=== PATIENT | female | born 1990 | race Caucasian/White ===

== ENCOUNTER 2021-07-02 09:45 | Inpatient (IN) | payer BC ==
[2021-07-02] MEDS: ELECTROLYTE-148 SOLN 1,000 ML IV SCH ×2 (11:00→13:38)
[2021-07-02 12:13] VITALS: BMI 24.7
[2021-07-02] MEDS ORDERED: METHYLERGONOVINE MALEATE 0.2 MG/1 ML AMP IM PRN (15:51)
[2021-07-02] MEDS ORDERED: BENZOCAINE 28 GM HEMORRHOIDAL OINTMENT TP PRN (15:51)
[2021-07-02] MEDS ORDERED: ACETAMINOPHEN 325 MG TABLET (FP) PO PRN (15:51)
[2021-07-02] MEDS ORDERED: BENZOCAINE 20% 57 GM BOTTLE TP PRN (15:51)
[2021-07-02] MEDS ORDERED: SENNOSIDES/DOCUSATE COMBO (SENNA PLUS) TABLET (UD) PO PRN (15:51)
[2021-07-02] MEDS ORDERED: WITCH HAZEL 50% (TUCKS) 40 PAD/JAR PAD TP PRN (15:51)
[2021-07-02 16:43] LABS: CORD BASE EXCESS -6.7 mmol/L (0-2); CORD HCO3 20.2 mmHg (20-29); CORD PCO2 45.3 mmHg (30-78); CORD pH 7.267 (7.14-7.44)
[2021-07-02 16:46] LABS: CORD BASE EXCESS -6.4 mmol/L (0-2); CORD HCO3 18.7 mmHg (20-29); CORD PCO2 36.2 mmHg (30-78); CORD pH 7.331 (7.14-7.44)
[2021-07-02] MEDS ORDERED: IBUPROFEN 800 MG/8 ML IJ IVPB ONE (19:41)
[2021-07-02] MEDS ORDERED: OXYTOCIN 20 UNITS in 0.9% NS 20 UNIT/1,000 ML INFUS.BAG IV ONE (19:41)
[2021-07-02] MEDS: OXYTOCIN 20 UNITS in 0.9% NS 20 UNIT/1,000 ML INFUS.BAG IV SCH (19:50)
[2021-07-02] MEDS: IBUPROFEN 800 MG/8 ML IJ IVPB PRN (19:50)
[2021-07-03] MEDS ORDERED: oxyCODONE HCL 5 MG TABLET PO PRN ×2 (03:51)
[2021-07-03] MEDS: OXYTOCIN 20 UNITS in 0.9% NS 20 UNIT/1,000 ML INFUS.BAG IV SCH (04:30)
[2021-07-03] MEDS: IBUPROFEN 800 MG/8 ML IJ IVPB PRN (06:46)
[2021-07-03] MEDS: SIMETHICONE 80 MG TAB.CHEW (FP) PO PRN ×2 (06:48→15:33)
[2021-07-03 07:44] LABS: BASO % 0.4 % (0-2.0); EOS % 0.4 % (0-4.5); HEMATOCRIT 31.7 % (32.4-45.2); HEMOGLOBIN 10.8 GM/dL (10.7-15.3); LYMPH % 6.7 % (8-40); MCH 30.6 pg (25.7-33.7); MCHC 34.1 g/dl (32.0-36.0); MEAN CELL VOLUME 89.8 fl (80-96); MONO % 5.5 % (3.8-10.2); PLATELET COUNT 240 10^3/uL (134-434); RBC 3.54 M/mm3 (3.60-5.2); RDW 13.9 % (11.6-15.6); WHITE BLOOD COUNT 11.9 K/mm3 (4.0-10.0)
[2021-07-03] MEDS: PRENATAL VITAMINS W/ FOLIC ACID TABLET (FP) PO SCH (10:29)
[2021-07-03] MEDS: IBUPROFEN 600 MG TABLET (FP) PO PRN (15:33)
[2021-07-03] MEDS ORDERED: BISACODYL 10 MG SUPP.RECT RC PRN (15:51)
[2021-07-04] MEDS: IBUPROFEN 600 MG TABLET (FP) PO PRN ×4 (03:56→22:59)
[2021-07-04] MEDS: PRENATAL VITAMINS W/ FOLIC ACID TABLET (FP) PO SCH (09:51)
[2021-07-04] MEDS: SIMETHICONE 80 MG TAB.CHEW (FP) PO PRN ×3 (09:51→22:59)
[2021-07-05 08:35] LABS: BASO % 0.3 % (0-2.0); EOS % 1.2 % (0-4.5); HEMATOCRIT 31.5 % (32.4-45.2); HEMOGLOBIN 10.7 GM/dL (10.7-15.3); LYMPH % 9.1 % (8-40); MCH 30.7 pg (25.7-33.7); MCHC 33.8 g/dl (32.0-36.0); MEAN CELL VOLUME 90.7 fl (80-96); MEAN PLT VOLUME 7.1 fl (7.5-11.1); MONO % 6.9 % (3.8-10.2); NEUT % 82.5 % (42.8-82.8); PLATELET COUNT 289 10^3/uL (134-434); RBC 3.47 M/mm3 (3.60-5.2); RDW 14.1 % (11.6-15.6); WHITE BLOOD COUNT 8.9 K/mm3 (4.0-10.0)
[2021-07-05] MEDS: IBUPROFEN 600 MG TABLET (FP) PO PRN ×2 (11:10→14:52)
[2021-07-05] MEDS: PRENATAL VITAMINS W/ FOLIC ACID TABLET (FP) PO SCH (11:12)
[2021-07-06] MEDS: IBUPROFEN 600 MG TABLET (FP) PO PRN (09:58)
[2021-07-06] MEDS: PRENATAL VITAMINS W/ FOLIC ACID TABLET (FP) PO SCH (09:58)
[2021-07-06 11:29] VITALS: BP 116/73; PULSE 88; TEMP 98.1
== END 2021-07-06 17:55 | disposition home or self-care (01) | DRG 788 ==
LOC: JLDR 09:45 → J3W 19:59
PROVIDERS: ADMIT Obstetrics & Gynecology; ATTEND Obstetrics & Gynecology
PROC: 10D00Z1 Extraction of Products of Conception, Low, Open Approach (ICD-10-PCS; principal; 2021-07-02)
DX: O44.03 Complete placenta previa NOS or without hemorrhage, third trimester (principal); Z3A.37 37 weeks gestation of pregnancy; Z37.0 Single live birth
CPT/HCPCS: 36415; 36600; 82803; 85025; 86762; 86850; 86900; 86901; 86922; 87340; 88307-TC

== ENCOUNTER 2023-09-08 23:30 | Emergency (ER) | payer BC ==
[2023-09-08 23:38] VITALS: BP 132/88; PULSE 97; RESP 20; TEMP 98.3; BMI 19.1
[2023-09-09] MEDS ORDERED: LIDOCAINE 5% TOPICAL PATCH ONE (00:22)
[2023-09-09] MEDS ORDERED: ACETAMINOPHEN INJECTION 100 ML IVPB ONE (00:22)
[2023-09-09] MEDS: LIDOCAINE 5% TOPICAL PATCH TP ONE (00:32)
[2023-09-09] MEDS: ACETAMINOPHEN 1000 MG/100 ML BAG IVPB ONE (00:36)
[2023-09-09 00:40] LABS: BASO % 0.6 % (0-2.0); EOS % 1.5 % (0-4.5); HEMATOCRIT 41.7 % (32.4-45.2); HEMOGLOBIN 14.3 GM/dL (10.7-15.3); LYMPH % 21.7 % (8-40); MCH 29.7 pg (25.7-33.7); MCHC 34.3 g/dl (32.0-36.0); MEAN CELL VOLUME 86.7 fl (80-96); MEAN PLT VOLUME 6.9 fl (7.5-11.1); MONO % 7.1 % (3.8-10.2); NEUT % 69.1 % (42.8-82.8); PLATELET COUNT 326 10^3/uL (134-434); RBC 4.81 M/mm3 (3.60-5.2); RDW 13.7 % (11.6-15.6); URINE APPEARANCE CLEAR; URINE BILIRUBIN NEGATIVE (NEGATIVE); URINE COLOR YELLOW; URINE GLUCOSE (UA) NEGATIVE (NEGATIVE); URINE KETONE NEGATIVE (NEGATIVE); URINE LEUK ESTERASE NEGATIVE (NEGATIVE); URINE NITRITE NEGATIVE (NEGATIVE); URINE PROTEIN NEGATIVE (NEGATIVE); WHITE BLOOD COUNT 8.1 K/mm3 (4.0-10.0)
[2023-09-09 00:58] LABS: POTASSIUM 3.7 mmol/L (3.5-5.1)
[2023-09-09 01:01] LABS: ALBUMIN 4.2 g/dl (3.4-5.0); BLOOD UREA NITROGEN 15.3 mg/dL (7-18); CALCIUM 9.1 mg/dL (8.5-10.1)
[2023-09-09 01:05] LABS: CREATININE 0.6 mg/dL (0.55-1.3); TOT PROT 7.6 g/dl (6.4-8.2)
[2023-09-09 01:06] LABS: BILIRUBIN,TOTAL 0.4 mg/dL (0.2-1)
[2023-09-09] MEDS ORDERED: LIDOCAINE PATCH REMOVAL MC SCH (22:00)
== END 2023-09-09 01:48 | disposition home or self-care (01) ==
LOC: JER 23:30
PROC: 3E033NZ Introduction of Analgesics, Hypnotics, Sedatives into Peripheral Vein, Percutaneous Approach (ICD-10-PCS; principal; 2023-09-09)
DX: R10.11 Right upper quadrant pain (principal)
CPT/HCPCS: 36415; 76705-TC; 80053; 81003; 84703; 85025; 87086; 99284-25; J0131